=== PATIENT | female | born 1950 | race Caucasian/White ===

== ENCOUNTER → 2017-11-05 | Outpatient (CLI) | payer MEDICARE, OTHER ==
[~2017-11-05] MED LIST: ASPIR 8181 MG PO; ASPIRIN81 M2 PO; CARVEDILOL12.5 MG PO; CIPRO500 MG PO; CRESTOR10 MG PO; EFFEXOR XR75 MG PO; KEFLEX500 MG PO; PLAVIX 300 MG300 M1 PO; PLAVIX 75 MG TA75 M1 PO; PROBIOTIC1 EAC1 PO; PROTONIX40 M1 PO; VENLAFAXIN75 MG/1 T2 PO
== END ==
LOC: M.ULTRA 09:15
DX: K80.20 Calculus of gallbladder without cholecystitis without obstruction (principal); I10 Essential (primary) hypertension; E11.9 Type 2 diabetes mellitus without complications; E78.4 Other hyperlipidemia; I25.10 Atherosclerotic heart disease of native coronary artery without angina pectoris; M19.90 Unspecified osteoarthritis, unspecified site

== ENCOUNTER → 2017-11-09 | Outpatient (CLI) | payer MEDICARE, OTHER | LOC: M.NUC 11-08 13:00 | DX: R10.11 Right upper quadrant pain (principal); I25.10 Atherosclerotic heart disease of native coronary artery without angina pectoris; I10 Essential (primary) hypertension; E11.9 Type 2 diabetes mellitus without complications; M19.90 Unspecified osteoarthritis, unspecified site; E78.4 Other hyperlipidemia ==

== ENCOUNTER → 2020-01-06 | Outpatient (CLI) | payer MEDICARE, OTHER | LOC: M.RAD 13:30 | PROVIDERS: ATTEND Family Medicine | DX: Z78.0 Asymptomatic menopausal state (principal) ==